=== PATIENT | male | born 1995 | race Caucasian/White ===

== ENCOUNTER 2017-08-23 22:34 | Inpatient (IN) | payer OTHER ==
[~2017-08-23] VITALS: Ht 190.5 cm; Wt 96.0 kg
[~2017-08-23 22:34] MED LIST: NOHOMEMEDS
[2017-08-23 23:39] LABS: HEMATOCRIT 48.3 % (38.0-50.0); MCH 31.1 PG (29.0-34.0); MCHC 34.6 G/DL (30.0-36.0); MCV 89.9 FL (86-99); MEAN PLAT.VOLUME 8.9 uM^3 (9.0-12.4); PLATELET COUNT 240 K/uL (156-360); RBC DIS.WIDTH-CV 12.8 % (11.8-14.6); RBC DIS.WIDTH-SD 42.1 % (39-53); RED BLOOD COUNT 5.37 M/uL (4.00-5.50); WHITE BLOOD COUNT 6.8 K/uL (4.1-10.2)
[2017-08-23 23:42] LABS: ADD MEDTOX COMMENT Y; AMPHETAMINE NEGATIVE (500 ng/mL); BARBITURATES NEGATIVE (200 ng/mL); BENZODIAZEPINES PRESUMPTIVE POSITIVE (150 ng/mL); COCAINE NEGATIVE (150 ng/mL); INTERNAL CONTROLS VALID? YES; METHADONE PRESUMPTIVE POSITIVE (200 ng/mL); METHAMPHETAMINE NEGATIVE (500 ng/mL); OPIATES (MORPHINE) NEGATIVE (100 ng/mL); OXYCODONE NEGATIVE (100 ng/mL); PHENCYCLIDINE NEGATIVE (25 ng/mL); PROPOXYPHENE NEGATIVE (300 ng/mL); THC CANNABINOIDS PRESUMPTIVE POSITIVE (50 ng/mL); TRICYCLIC ANTIDEPRESSANTS NEGATIVE (300 ng/mL)
[2017-08-23 23:53] LABS: CHLORIDE 104 mEq/L (99-109); SODIUM 140 mEq/L (136-147)
[2017-08-23 23:54] LABS: GLUCOSE 90 mg/dL (70-99)
[2017-08-23 23:56] LABS: ANION GAP 12 MEQ/L (2-14)
[2017-08-23 23:58] LABS: GFR ESTIMATE (CALCULATED) > 59 mL/min/; SERUM ETHYL ALCOHOL 234 mg/dL
[2017-08-23 23:59] LABS: UREA NITROGEN (BUN) 10 mg/dL (9-23)
[2017-08-24 02:16] LABS: BENZODIAZEPINES QUANT VALUE 0 NG/ML; BENZODIAZEPINES, URINE SCREEN Negative (200 ng/mL)
[2017-08-24] MEDS ORDERED: CLONIDINE HCL0.1 MG PO (08:21)
[2017-08-24] MEDS ORDERED: SERTRALINE HCL100 MG PO (08:21)
[2017-08-24] MEDS ORDERED: DESYREL 150 MG150 MG PO (08:22)
[2017-08-24 09:15] VITALS: BP 159/95
[2017-08-24 09:26] VITALS: BP 159/95
[2017-08-24 11:55] VITALS: BP 140/96
[2017-08-24 15:32] VITALS: BP 128/83
[2017-08-24 20:31] VITALS: BP 138/99
[2017-08-25 06:56] VITALS: BP 125/92
[2017-08-25 12:10] VITALS: BP 150/93
[2017-08-25 15:32] VITALS: BP 147/85
[2017-08-26 07:48] VITALS: BP 119/72
[2017-08-26] MEDS ORDERED: ATARAX,VISTARIL50 MG PO (08:43)
== END 2017-08-26 13:44 | disposition other institution (70) | DRG 897 ==
LOC: EME 22:34 → 1WEST 08-24 07:14 → EDOF 08-24 07:14 → ENRESERV 08-24 09:06 → 1WEST 08-24 09:06
PROC: HZ2ZZZZ Detoxification Services for Substance Abuse Treatment (ICD-10-PCS; principal; 2017-08-24)
DX: F11.24 Opioid dependence with opioid-induced mood disorder (principal); R45.851 Suicidal ideations; F10.239 Alcohol dependence with withdrawal, unspecified; F11.23 Opioid dependence with withdrawal; F17.200 Nicotine dependence, unspecified, uncomplicated; Y90.7 Blood alcohol level of 200-239 mg/100 ml
CPT/HCPCS: 80048; 84999; 85027; 90839; 99281; 99283; G0480; J0572; J0574; Q0177